=== PATIENT | female | born 2000 | race Caucasian/White ===

== ENCOUNTER 2022-07-16 02:52 | Emergency (ER) | payer MEDICAID ==
[~2022-07-16] VITALS: Ht 154.9 cm; Wt 75.0 kg
[2022-07-16 03:37] LABS: CLARITY URINE CLEAR (CLEAR); COLOR URINE YELLOW (YELLOW); KETONES URINE NEGATIVE (NEGATIVE); LEUKOCYTE ESTERASE URINE NEGATIVE (NEGATIVE); NITRITE URINE NEGATIVE (NEGATIVE); OCCULT BLOOD URINE NEGATIVE (NEGATIVE); PROTEIN URINE NEGATIVE (NEGATIVE); SPECIFIC GRAVITY URINE 1.004 (1.005-1.030); UROBILINOGEN URINE 0.2 E.U./dL (0.2-1.0)
[2022-07-16] MEDS ORDERED: KETOROLAC 60MG/2ML VIAL IM STA (03:48)
[2022-07-16] MEDS ORDERED: ACETAMINOPHEN 325MG TABLET PO STA (03:48)
[2022-07-16 04:10] LABS: BASOPHILS % 0.7 % (0.0-2.0); EOSINOPHILS % 2.2 % (0.0-5.0); HEMATOCRIT. 38.8 % (36.0-48.0); HEMOGLOBIN. 13.1 g/dL (12.0-16.0); LYMPHOCYTES % 20.1 % (20.0-50.0); MEAN CORPUSCULAR HEMOGLOBIN 32.2 pg (28.0-32.0); MEAN CORPUSCULAR VOLUME 95.5 fL (81.0-99.0); MONOCYTES % 8.8 % (2.0-8.0); NEUTROPHILS % 68.2 % (40.0-76.0); PLATELET 366 x1000/uL (130-400); RED BLOOD CELL COUNT 4.06 mill/uL (4.2-5.4); RED CELL DISTRIBUTION WIDTH 13.1 % (11.6-14.6)
[2022-07-16 04:22] LABS: HCG SCREEN NEGATIVE
[2022-07-16 04:25] LABS: PROTHROMBIN TIME 10.3 sec (9.6-11.0)
[2022-07-16 04:44] LABS: CHLORIDE 108 mEq/L (98-107)
[2022-07-16 09:00] VITALS: BP 134/90
[2022-07-16] MEDS ORDERED: ACETAMINOPHEN 325MG TABLET PO NR (09:00)
[2022-07-16] MEDS ORDERED: KETOROLAC 30MG/ML VIAL IM NR (09:00)
[2022-07-16] MEDS ORDERED: NITR-87 MT (11:04)
[2022-07-16] MEDS ORDERED: IBUP-2029 MT (11:04)
== END 2022-07-16 11:52 | disposition home or self-care (01) ==
LOC: ER 02:52
DX: R10.9 Unspecified abdominal pain (principal); R30.0 Dysuria; J06.9 Acute upper respiratory infection, unspecified; Z87.19 Personal history of other diseases of the digestive system
CPT/HCPCS: 36415; 71045; 74176; 80053; 81003; 81025; 83690; 84703; 85025; 85610; 87086; 96372; 99285; J1885; Z7610